=== PATIENT | male | born 1985 | race Caucasian/White ===

== ENCOUNTER 2019-05-04 23:43 | Emergency (ER) | payer OTHER ==
[~2019-05-04] VITALS: Ht 175.3 cm; Wt 74.8 kg
[2019-05-04 23:50] VITALS: BP_SYST 143
== END 2019-05-05 02:15 | disposition left against medical advice (07) ==
LOC: SED 23:43
DX: T42.4X5A Adverse effect of benzodiazepines, initial encounter (principal); T39.1X5A Adverse effect of 4-Aminophenol derivatives, initial encounter; Z53.21 Procedure and treatment not carried out due to patient leaving prior to being seen by health care provider; Y92.89 Other specified places as the place of occurrence of the external cause

== ENCOUNTER 2019-07-28 03:40 | Emergency (ER) | payer OTHER ==
[~2019-07-28] VITALS: Ht 172.7 cm; Wt 74.8 kg
[2019-07-28 03:40] VITALS: BP_SYST 117
[2019-07-28] MEDS ORDERED: LORA-259 PO (04:01)
[2019-07-28] MEDS ORDERED: TEMA15CA5 PO (04:01)
[2019-07-28] MEDS ORDERED: LIDOCAINE 1%, 20 ML MDV 20 ML ONE (05:33)
[2019-07-28] MEDS ORDERED: BACITRACIN 1 GM OINT TP ONE ×2 (06:13→06:16)
[2019-07-28 06:24] VITALS: BP_SYST 117
[2019-07-28] MEDS ORDERED: BACITRACIN OPHTHALMIC OINT.3.5 GM OP SCH (09:00)
== END 2019-07-28 06:24 | disposition home or self-care (01) ==
LOC: SED 03:40
DX: S01.81XA Laceration without foreign body of other part of head, initial encounter (principal); W05.1XXA Fall from non-moving nonmotorized scooter, initial encounter; Y93.89 Activity, other specified; Y92.410 Unspecified street and highway as the place of occurrence of the external cause; Y99.8 Other external cause status
CPT/HCPCS: 12011; 99283; J2001